=== PATIENT | female | born 1960 | race Caucasian/White ===

== ENCOUNTER → 2022-01-17 | Outpatient (CLI) | payer BC ==
--- NOTE | 2022-01-17 13:59 | US ---
EXAMINATION TYPE: US kidneys/renal and bladder DATE OF EXAM: 01/17/2022 COMPARISON: NONE CLINICAL HISTORY: R31.9 HEMATURIA, UNSPECIFIED. Hematuria EXAM MEASUREMENTS: Right Kidney: 13.1 x 5.1 x 3.7 cm Left Kidney: 14.0 x 5.0 x 5.4 cm Right Kidney: Appears enlarged. Appearance of some hydronephrosis medially. Left Kidney: Appears enlarged. Bladder: Appears anechoic. Bilateral Jets seen: Yes Incidental findings: Ascites seen within the RUQ. -Two isoechoic areas seen within the liver: #1- 2.5 x 2.6 x 3.1 cm. #2- 1.8 x 1.6 x 1.5 cm. -Hyperechoic area seen within the liver: 1.0 x 1.1 x 0.8 cm. IMPRESSION: 1. Indeterminate masslike regions within the liver measuring up to 2.6 cm and 1.8 cm. Further evalua tion of the liver is recommended with CT or MRI liver mass protocol. 2. Benign-appearing probable hepatic hemangioma is also noted. 3. Trace ascites. 4. Mild right renal collecting system dilation correlate for hydronephrosis.
== END | disposition home or self-care (01) ==
LOC: RADUSWWP 12:50
PROVIDERS: ATTEND Family Medicine
DX: N13.30 Unspecified hydronephrosis (principal); R31.9 Hematuria, unspecified; R18.8 Other ascites
CPT/HCPCS: 76770

== ENCOUNTER → 2022-03-05 | Outpatient (CLI) | payer BC ==
--- NOTE | 2022-03-05 14:32 | MR ---
EXAMINATION TYPE: MR liver wo/w con DATE OF EXAM: 03/05/2022 12:59 PM INDICATION: Patient age:Female; 61 years old; Reason for study: R16.0 HEPATOMEGALY COMPARISON: Ultrasound 11/17/2021. TECHNIQUE: Multiplanar multi-sequence imaging was performed without contrast. Post contrast imaging was performed. Post IV contrast subtraction images were also submitted for review. IV Contrast: 6 cc Gadavist FINDINGS: LOWER CHEST: No gross irregularity. ABDOMEN Liver: Innumerable (greater than 40) high T2/high DWI/low T1 lesions are seen throughout the liver largest i n the left hepatic lobe segment 2 measuring 5.7 x 5.1 x 5.8 cm with somewhat irregular borders. The l argest in the right hepatic lobe centered around segment 8 and 4r measuring 8.3 x 7.5 x 11.3 cm. Uncl ear if this is one lesion are multiple lesions. Post contrast imaging is limited on early phase secon larisa to motion. Delayed imaging does demonstrate irregular enhancement which does not progressively f ill in. There is no innumerable numbers of these lesions. Liver is enlarged for size measuring up to 23.7 cm in caudocranial dimension. Gallbladder and Bile ducts: Unremarkable. Pancreas: No evidence of mass homogenous parenchyma signal. No ductal dilation. Spleen: Unremarkable. Adrenal glands: Unremarkable. Kidneys: No evidence of obstructive uropathy there is pelviectasis bilaterally. Stomach and Bowel: Unremarkable as visualized. Peritoneum: No greater than 1 cm lymph nodes identified within the abdomen. Trace fluid is seen arou nd the liver. Vasculature:. No aortic aneurysm. Musculoskeletal: The osseous structures appear intact. Abdominal wall: Unremarkable. IMPRESSION: 1. Innumerable (greater than 40) liver lesions concerning for multifocal hepatocellular carcinoma ve rsus metastatic disease until proven otherwise. Tissue sampling and further workup is recommended, co nsider complete evaluation of the abdomen and pelvis with CT abdomen pelvis with IV and oral contrast . 2. Trace ascites as seen on prior ultrasound.
== END | disposition home or self-care (01) ==
LOC: RADMRIMAIN 12:11
PROVIDERS: ATTEND Family Medicine
DX: K76.9 Liver disease, unspecified (principal); R16.0 Hepatomegaly, not elsewhere classified; R18.8 Other ascites
CPT/HCPCS: 74183

== ENCOUNTER → 2022-03-09 | Outpatient (CLI) | payer BC ==
--- NOTE | 2022-03-12 06:54 | PE ---
EXAMINATION TYPE: PET CT fusion skull to thigh DATE OF EXAM: 03/09/2022 COMPARISON: MRI liver March 05, 2022 HISTORY: Rectal cancer with hepatic metastatic disease. TECHNIQUE: Following the intravenous administration of 11.14 mCi of F-18 FDG, whole body images are performed from the skull base to the midthigh. Images are reviewed on the computer in the coronal, a xial, and sagittal planes. Reconstructed rotating images are created on independent workstation and reviewed on the computer. A localization and attenuation correction CT is performed in conjunction with the PET scan. Blood glucose level equals 81. SCAN: Initial Scan FINDINGS: SKULL BASE AND NECK: No areas of abnormal hypermetabolic uptake. CHEST, MEDIASTINUM, AND HILAR REGION: No areas of abnormal hypermetabolic uptake. ABDOMEN AND PELVIS: Hepatomegaly with innumerable hypermetabolic masses that are fairly confluent jeane earance consistent with known diffuse metastatic disease. One of the largest posterior right hepatic dome measures 8.7 cm long axis axial image 113, max SUV is 6.8 on axial image 103. There is lesion in the right liver measuring 9.2 cm long axis axial image 119. Max SUV in this lesion is 8.64 on axial image 113. Abnormal hypermetabolic uptake in the lateral posterior aspect of the rectal wall with abnormal wall thickening near axial image 197 corresponding to known neoplasm, max SUV is 13.43 on axial image 201. There are abnormal adjacent lymph nodes extending superior to this largest lymph node measures 1.6 c m and is hypermetabolic axial image 197, max SUV is 4.76s. OSSEOUS STRUCTURES: No areas of abnormal hypermetabolic uptake. OTHER CT: Nasal septum is deviated to the left of midline. There is azygos lobe/fissure. There is mil d underlying emphysematous change present. There are few scattered small pulmonary nodules greater in the lower lungs, for reference there are 2 tiny nodules in the left lower lobe axial images 87 and 8 9 measuring up to 5 mm in size. There are 3 slightly larger nodules in the right lower lung with larg est measuring 1.2 x 1.1 cm in the periphery of the right lower lobe on axial image 86, this nodule is currently ametabolic. These should be followed with caution. Vacuum disc phenomenon at L4-L5 level. IMPRESSION: Known rectal neoplasm with abnormal adjacent pelvic adenopathy. There is hepatomegaly wit h hepatic metastatic disease noted as detailed above. Small bilateral lower lung pulmonary nodules ar e suspicious for early metastatic disease despite largest nodule being ametabolic.
== END | disposition home or self-care (01) ==
LOC: RADXRMAIN 11:16
PROVIDERS: ATTEND Internal Medicine Hematology & Oncology
DX: C78.7 Secondary malignant neoplasm of liver and intrahepatic bile duct (principal); C20 Malignant neoplasm of rectum; R91.8 Other nonspecific abnormal finding of lung field; R16.0 Hepatomegaly, not elsewhere classified; R59.0 Localized enlarged lymph nodes
CPT/HCPCS: 78815; A9552

== ENCOUNTER 2022-03-27 08:45 | Day surgery (SDC) | payer BC ==
[~2022-03-27 08:45] MED LIST: ALPRAZolam 0.5 MG TAB PO PRN; HYDROmorphone 0.5 MG/0.5 ML SYRINGE IVP PRN
[2022-03-27 10:02] LABS: Mean Platelet Volume 7.9; Platelet Count 566 k/uL (150-450)
[2022-03-27 10:13] LABS: INR 1.2 (<1.2)
[2022-03-27 10:58] VITALS: RESP 18
--- NOTE | 2022-03-27 12:28 | US ---
Ultrasound-guided liver mass biopsy Date: 03/27/2022 History: Rectal cancer, liver lesions Comparison: MRI 03/05/[address] 03/09/2022 The patient was brought to the US room after coagulation profile was checked and deemed appropriate. The risks and benefits of the procedure were explained to the patient, and the patient's questions we re answered. Informed consent was obtained. Limited ultrasound of the liver demonstrates multiple minimally hyperechoic nodules within both lobes . A critical pause was performed. Sterile field was prepared, and lidocaine was used for local anesthes ia. Under direct ultrasound guidance, four 18-gauge core specimens of one of the masses in the right lobe was performed. The patient tolerated the procedure well with no apparent complications. A postprocedural scan throug h the region of interest demonstrated no acute complications. After the procedure, the patient was observed for a short period of time, again with no complications . Impression: Successful ultrasound-guided liver mass biopsy.
[2022-03-27 14:52] VITALS: BP 134/72; PULSE 84
== END 2022-03-27 14:51 | disposition home or self-care (01) ==
LOC: RADPROMAIN 08:45
PROVIDERS: ATTEND Internal Medicine Hematology & Oncology
DX: C78.7 Secondary malignant neoplasm of liver and intrahepatic bile duct (principal); C20 Malignant neoplasm of rectum
CPT/HCPCS: 36415; 47000; 76942; 85049; 85610; 88307; 88341; 88342

== ENCOUNTER → 2022-07-13 | Outpatient (CLI) | payer BC ==
--- NOTE | 2022-07-14 11:38 | PE ---
EXAMINATION TYPE: PET CT fusion skull to thigh DATE OF EXAM: 07/13/2022 CLINICAL INDICATION:Female, 61 years old with history of C20; TECHNIQUE: Following the intravenous administration of 11.28 mCi of F-18 FDG, whole body images are performed from the skull base to the midthigh. Images are reviewed on the computer in the coronal, axial, and sagittal planes. Reconstructed rotating images are created on independent workstation and reviewed on the computer. A non-contrast CT is performed in conjunction with the PET scan. Glucose level 87 mg/dL COMPARISON: CT None, PET/CT 03/09/2022, FINDINGS: Mediastinal SUV mean is 1.2. Hepatic parenchyma SUV mean is 1.8. SKULL BASE AND NECK: No suspicious radiotracer activity. CHEST, MEDIASTINUM, AND HILAR REGION: Pulmonary nodules: * Right upper lobe measuring 9 mm previously 8 mm * Right lower lobe peripheral lateral measuring 12 mm, previous to 12 mm. * Right lower lobe 7 mm, previously 5 mm * Left lower lobe nodules measuring up to 5 mm appears stable. * Left upper lobe 5 mm pulmonary nodule previously 4 mm. All of these nodules have FDG activity below background levels. ABDOMEN AND PELVIS: * Diffuse uptake throughout the liver seen on prior within multiple lesions is no longer visualized. There is low density cysts in these areas of prior metastatic disease. * Decrease in metabolic activity within the rectum and perirectal lymph nodes. Left perirectal lymph nodes measuring up to 9 mm Max SUV 0.8 previously 4.8. No appreciable metabolic activity within the rectum. OSSEOUS STRUCTURES: No suspicious radiotracer activity. Diffuse osseous uptake. OTHER CT: Chest wall [id number] is present with tip in appropriate position.Nasal septum is deviat ed to the left of midline. There is azygos lobe/fissure. There is mild underlying emphysematous sue e present. These should be followed with caution. IMPRESSION: 1. Positive response to therapy with resolution of FDG activity throughout the hepatic lesions, rect al wall and perirectal lymph nodes. The hepatic lesions demonstrate cystic change. On today's exam Sc attered diffuse pulmonary nodules some of which have minimally increased in size compared to prior. T hey all have FDG activity below background levels. Surveillance with CT imaging is recommended. 2. Diffuse osseous uptake correlate for colony stimulating factor usage.
== END | disposition home or self-care (01) ==
LOC: RADPETMAIN 15:28
PROVIDERS: ATTEND Internal Medicine Hematology & Oncology
DX: C20 Malignant neoplasm of rectum (principal); R91.8 Other nonspecific abnormal finding of lung field
CPT/HCPCS: 78815; A9552

== ENCOUNTER → 2022-10-25 | Outpatient (CLI) | payer BC ==
--- NOTE | 2022-10-25 15:56 | US ---
EXAMINATION TYPE: US venous doppler duplex LE DATE OF EXAM: 10/25/2022 3:38 PM COMPARISON: NONE CLINICAL INDICATION: Female, 62 years old with history of M79.661 M79.662; Pt states left foot discol oration/ pt currently on chemo for rectal CA SIDE PERFORMED: Bilateral TECHNIQUE: The lower extremity deep venous system is examined utilizing real time linear array sonog ilan with graded compression, doppler sonography and color-flow sonography. VESSELS IMAGED: Common Femoral Vein Deep Femoral Vein Greater Saphenous Vein * Femoral Vein Popliteal Vein Small Saphenous Vein * Proximal Calf Veins (* superficial vessels) Right Leg: Negative for DVT Left Leg: Negative for DVT IMPRESSION: Grayscale, color doppler, spectral doppler imaging performed of the deep veins of the lo wer extremities. There is normal flow, compressibility, vascular waveforms.
== END | disposition home or self-care (01) ==
LOC: RADUSWWP 15:16
PROVIDERS: ATTEND Internal Medicine Hematology & Oncology
DX: M79.662 Pain in left lower leg (principal); R22.42 Localized swelling, mass and lump, left lower limb; M79.661 Pain in right lower leg
CPT/HCPCS: 93970